=== PATIENT | male | born 1960 ===

== ENCOUNTER 2017-06-22 10:54 | Emergency (ER) | payer OTHER ==
[2017-06-22 11:06] VITALS: BMI 28.8
[2017-06-22 11:10] VITALS: BP 169/76; PULSE 80; RESP 18; TEMP 97.9; O2SAT 100
--- NOTE | 2017-06-22 11:44 | RAD ---
PROCEDURE: Right Foot Radiographs. HISTORY: pain to arch and heel of foot, no injury COMPARISON: None. FINDINGS: BONES: No acute fracture. JOINTS: Normal. SOFT TISSUES: Normal. OTHER FINDINGS: Achilles enthesophyte. Inferior plantar calcaneal spur. IMPRESSION: No demonstrated fracture or dislocation.
--- NOTE | 2017-06-22 11:58 | C.PDOC ---
History Of Present Illness 57 year old male presents to ED for evaluation of right foot pain along the arch of the foot for the last 2 days. Patient states he felt a "click" when stepping on a ladder at work 2 days ago. Patient admits to having similar symptoms in the past. Denies fall, injury, change in sensation, skin changes, swelling, or fever. Time Seen by Provider: 06/22/17 11:22 Chief Complaint (Nursing): Lower Extremity Problem/Injury History Per: Patient History/Exam Limitations: no limitations Onset/Duration Of Symptoms: Days (2) Current Symptoms Are (Timing): Still Present Recent travel outside of the [place]: No Additional History Per: Patient Past Medical History Reviewed: Historical Data, Nursing Documentation, Vital Signs Vital Signs: Last Vital Signs Temp 97.9 F 06/22/17 11:06 Pulse 80 06/22/17 11:06 Resp 18 06/22/17 11:06 BP 169/76 H 06/22/17 11:06 Pulse Ox 100 06/22/17 12:07 - Medical History PMH: Diabetes, HTN Denies: Chronic Kidney Disease Surgical History: CABG (triple jun 03, 2016), Coronary Stent (adriano 1999,2001), Tonsillectomy - [facility] Procedures OTHER SKIN & SUBQ I D (11/12/12) Family History: States: Unknown Family Hx - Social History Hx Tobacco Use: No Hx Alcohol Use: No Hx Substance Use: No - Immunization History Hx Tetanus Toxoid Vaccination: No Hx Influenza Vaccination: No Hx Pneumococcal Vaccination: No Review Of Systems Except As Marked, All Systems Reviewed And Found Negative. Constitutional: Negative for: Fever, Chills Musculoskeletal: Positive for: Foot Pain (right). Negative for: Leg Pain Skin: Negative for: Rash, Bruising Neurological: Negative for: Weakness, Numbness Physical Exam - Physical Exam Appears: Non-toxic, No Acute Distress Skin: Normal Color, Warm, Dry, No Ecchymosis (no ecchymosis to right foot) Head: Atraumatic, Normacephalic Extremity: Normal ROM (FROM of right foot), Tenderness (tenderness to medial and plantar surface of the right foot), No Pedal Edema, No Calf Tenderness, Capillary Refill (less than 2 seconds), No Deformity, No Swelling Extremity: Bilateral: Normal Color And Temperature, Normal ROM Pulses: Left Dorsalis Pedis: Normal, Right Dorsalis Pedis: Normal Neurological/Psych: Oriented x3, Normal Speech, Normal Motor, Normal Sensation ED Course And Treatment O2 Sat by Pulse Oximetry: 100 (RA) Pulse Ox Interpretation: Normal - Other Rad Right foot x-ray X-Ray: Viewed By Me, Read By Radiologist Interpretation: PROCEDURE: Right Foot Radiographs. HISTORY: pain to arch and heel of foot, no injury. COMPARISON: None. FINDINGS: BONES: No acute fracture. JOINTS: Normal. SOFT TISSUES: Normal. OTHER FINDINGS: Achilles enthesophyte. Inferior plantar calcaneal spur. IMPRESSION: No demonstrated fracture or dislocation. Medical Decision Making Medical Decision Making: Impression: right foot pain Plan: Right foot x-ray Reassess, dispo: Explained results of xray to patient and provide copy of report to patient. He is ambulatory without discomfort. recommend foot exercises and analgesics. can follow up with podiatry Disposition Counseled Patient/Family Regarding: Diagnosis, Need For Followup, Rx Given - Disposition Referrals: Podiatry Clinic [Outside] Disposition: HOME/ ROUTINE Disposition Time: 12:10 Condition: GOOD Additional Instructions: Your xray shows calcaneal spurring. Please apply ice to area 15 minutes three times a day. Take Motrin as needed for pain every 6 hours, with food to not upset stomach. Follow up with podiatry if pain persists over one week. Prescriptions: Ibuprofen [Motrin] 600 mg PO Q8 #30 tab Instructions: Heel Pain (Caused by Plantar Fasciitis), Plantar Fasciitis Exercises Forms: [facility] (Namibian) - POA Present On Arrival: None - Clinical Impression Clinical Impression: Plantar fasciitis - PA / NURSING EXECUTIVE / Resident Statement MD/DO has reviewed & agrees with the documentation as recorded. - Scribe Statement The provider has reviewed the documentation as recorded by the Damienibe Stacey Pacheco All medical record entries made by the Major were at my direction and personally dictated by me. I have reviewed the chart and agree that the record accurately reflects my personal performance of the history, physical exam, medical decision making, and the department course for this patient. I have also personally directed, reviewed, and agree with the discharge instructions and disposition.
== END 2017-06-22 12:15 | disposition home or self-care (01) ==
LOC: C.ER 10:54
DX: M72.2 Plantar fascial fibromatosis (principal)

== ENCOUNTER 2017-09-10 06:55 | Emergency (ER) | payer OTHER ==
[2017-09-10 06:55] VITALS: BMI 28.8
--- NOTE | 2017-09-10 07:42 | C.PDOC ---
History Of Present Illness 57 y/o male, w/ PMhx of HTN, diabetes, CAD s/p CABG, presents to the ER complaining of lightheadedness which began in the morning today. Patient is also complaining of left jaw and left ear pain which also began in the morning today. Patient admits to not taking his nighttime BP medication yesterday because he fell asleep. Denies having CP, SOB, palpitations, visual changes, lower extremity weakness, and neurosensory changes. Time Seen by Provider: 09/10/17 07:07 Chief Complaint (Nursing): Dizziness/Lightheaded History Per: Patient History/Exam Limitations: no limitations Onset/Duration Of Symptoms: Hrs Current Symptoms Are (Timing): Still Present Severity: Moderate Past Medical History Reviewed: Historical Data, Nursing Documentation, Vital Signs Vital Signs: Last Vital Signs Temp 98 F 09/10/17 09:31 Pulse 77 09/10/17 10:52 Resp 18 09/10/17 10:52 BP 146/73 09/10/17 10:52 Pulse Ox 99 09/10/17 10:52 - Medical History PMH: Diabetes, HTN Denies: Chronic Kidney Disease Surgical History: CABG (triple jun 03, 2016), Coronary Stent (adriano 1999,2001), Tonsillectomy - [facility] Procedures OTHER SKIN & SUBQ I D (11/12/12) Family History: States: No Known Family Hx - Social History Hx Tobacco Use: No Hx Alcohol Use: No Hx Substance Use: No - Immunization History Hx Tetanus Toxoid Vaccination: No Hx Influenza Vaccination: No Hx Pneumococcal Vaccination: No Review Of Systems Except As Marked, All Systems Reviewed And Found Negative. Constitutional: Negative for: Fever, Chills Eyes: Negative for: Vision Change ENT: Positive for: Ear Pain (left ear pain) Cardiovascular: Negative for: Chest Pain, Palpitations Respiratory: Negative for: Shortness of Breath Neurological: Positive for: Dizziness. Negative for: Weakness, Numbness Physical Exam - Physical Exam Appears: Non-toxic, No Acute Distress, Other (comfortable) Skin: Normal Color, Warm, Dry Head: Atraumatic, Normacephalic Eye(s): bilateral: Normal Inspection, PERRL, EOMI Ear(s): Bilateral: Normal Nose: Normal Oral Mucosa: Moist Neck: Supple Chest: Symmetrical Cardiovascular: Rhythm Regular, Murmur (4/6 systolic murmur) Respiratory: Normal Breath Sounds, No Rales, No Rhonchi, No Wheezing Gastrointestinal/Abdominal: Normal Exam, Soft, No Tenderness Neurological/Psych: Oriented x3, Normal Speech, Normal Cranial Nerves, Normal Motor, Normal Sensation Gait: Steady ED Course And Treatment - Laboratory Results Result Diagrams: 09/10/17 07:46 09/10/17 07:46 O2 Sat by Pulse Oximetry: 98 (RA) Pulse Ox Interpretation: Normal - CT Scan/US CT HEAD Other Rad Studies (CT/US): Read By Radiologist, Radiology Report Reviewed CT/US Interpretation: Accession No. : [id number]. Patient Name / ID : CATHRYN JARA / [id number]. Exam Date : 09/10/2017 08:51:11 ( Approved ). Study Comment : Sex / Age : M / 57Y. Creator : Fadumo Hawkins. Dictator : Magaly Casper MD. Neurophysiology Tech : Process Cheese Cooker : Magaly Casper MD. Approver2 : Report Date : 09/10/2017 08:56:01. My Comment : . PROCEDURE: CT HEAD WITHOUT CONTRAST. HISTORY: dizzy, uncontroled hypertension. COMPARISON: None available. TECHNIQUE: Axial computed tomography images were obtained through the head/brain without intravenous contrast. Radiation dose: Total exam DLP = 904.85 mGy-cm. This CT exam was performed using one or more of the following dose reduction techniques: Automated exposure control, adjustment of the mA and/or kV according to patient size, and/or use of iterative reconstruction technique. FINDINGS: HEMORRHAGE: No intracranial hemorrhage. BRAIN: Michelle-white matter differentiation is preserved. There is no mass, mass effect or abnormal extra-axial fluid collection. There is no territorial infarction. VENTRICLES: The ventricles are normal in shape and configuration. There is asymmetry in the size of the lateral ventricles, left larger than right, likely an anatomic variant. CALVARIUM: The skull base and calvarium are normal. PARANASAL SINUSES: Predominantly clear. MASTOID AIR CELLS: Predominantly clear. OTHER FINDINGS: None. IMPRESSION: No acute intracranial abnormality. Progress Note: Labs, UA, EKG, CT- Head ordered. Patient treated with Norvasc PO. Disposition Counseled Patient/Family Regarding: Studies Performed, Diagnosis, Need For Followup - Disposition Referrals: Nyasia Baldwin MD [Staff Provider] - Disposition: HOME/ ROUTINE Disposition Time: 11:15 Condition: STABLE Additional Instructions: FOLLOW UP WITH DR BALDWIN IN 1-2 DAYS RETURN TO ER IF YOU HAVE ANY CONCERNING SYMPTOMS Instructions: High Blood Pressure (DC) Forms: [facility] (Sinhala), General Discharge Instructions Print Language: ITALIAN - POA Present On Arrival: None - Clinical Impression Clinical Impression: Dizziness, Hypertension - Scribe Statement The provider has reviewed the documentation as recorded by the Damienibe Artie De Santiago Provider Attestation: All medical record entries made by the Damienibe were at my direction and personally dictated by me. I have reviewed the chart and agree that the record accurately reflects my personal performance of the history, physical exam, medical decision making, and the department course for this patient. I have also personally directed, reviewed, and agree with the discharge instructions and disposition.
[2017-09-10 07:52] LABS: BASO % 0.7 % (0.0-2.0); EOS # 0.2 K/uL (0.0-0.7); EOS % 4.2 % (0.0-4.0); HEMOGLOBIN 12.7 g/dL (12.0-18.0); LYMPH # 1.3 K/uL (1.0-4.3); LYMPH % 23.3 % (20.0-40.0); MEAN CELL VOLUME 82.3 fL (80.0-94.0); MEAN CORPUSCULAR HEMOGLOBIN 29.2 pg (27.0-31.0); MEAN CORPUSCULAR HGB CONC 35.5 g/dL (33.0-37.0); MEAN PLATELET VOLUME 7.9 fL (7.2-11.7); MONO # 0.5 K/uL (0.0-0.8); MONO % 8.5 % (0.0-10.0); NEUT # 3.5 K/uL (1.8-7.0); NEUT % 63.3 % (50.0-75.0); NRBC % 0.1 % (0.0-2.0); RBC 4.33 Mil/uL (4.40-5.90); RED CELL DISTRIBUTION WIDTH 13.9 % (11.5-14.5); WHITE BLOOD COUNT 5.4 K/uL (4.8-10.8)
[2017-09-10 08:27] LABS: ALB/GLOB RATIO 1.2 (1.0-2.1); ALBUMIN 3.6 g/dL (3.5-5.0); ALT/SGPT 23 U/L (21-72); AST/SGOT 32 U/L (17-59); BLOOD UREA NITROGEN 22 mg/dL (9-20); CALCIUM 9.3 mg/dl (8.6-10.4); GFR AFRICAN-AMERICAN > 60; GFR NON-AFRICAN AMERICAN > 60
[2017-09-10] MEDS ORDERED: (Novolin R) Insulin Human Regular 100 units/ml vial IV ONE (09:00)
--- NOTE | 2017-09-10 09:11 | CT ---
PROCEDURE: CT HEAD WITHOUT CONTRAST. HISTORY: dizzy, uncontroled hypertension COMPARISON: None available. TECHNIQUE: Axial computed tomography images were obtained through the head/brain without intravenous contrast. Radiation dose: Total exam DLP = 904.85 mGy-cm. This CT exam was performed using one or more of the following dose reduction techniques: Automated exposure control, adjustment of the mA and/or kV according to patient size, and/or use of iterative reconstruction technique. FINDINGS: HEMORRHAGE: No intracranial hemorrhage. BRAIN: Michelle-white matter differentiation is preserved. There is no mass, mass effect or abnormal extra-axial fluid collection. There is no territorial infarction. VENTRICLES: The ventricles are normal in shape and configuration. There is asymmetry in the size of the lateral ventricles, left larger than right, likely an anatomic variant. CALVARIUM: The skull base and calvarium are normal PARANASAL SINUSES: Predominantly clear. MASTOID AIR CELLS: Predominantly clear. OTHER FINDINGS: None. IMPRESSION: No acute intracranial abnormality.
[2017-09-10 09:32] VITALS: RESP 18; TEMP 98
[2017-09-10 10:05] LABS: URINE BILIRUBIN NEGATIVE (NEGATIVE); URINE BLOOD 1+ (NEGATIVE); URINE CLARITY Clear (Clear); URINE COLOR Straw (YELLOW); URINE GLUCOSE (UA) 3+ mg/dL (Normal); URINE LEUKOCYTE ESTERASE NEG Leu/uL (Negative); URINE PROTEIN NEGATIVE (NEGATIVE); URINE UROBILINOGEN NORMAL mg/dL (0.2-1.0)
[2017-09-10] MEDS ORDERED: (Novolin R) Insulin Human Regular 100 units/ml vial ONE (10:23)
[2017-09-10 10:52] VITALS: BP 146/73; PULSE 77
[2017-09-10 11:17] VITALS: O2SAT 98
--- NOTE | 2017-09-11 13:58 | CARD ---
APPROVED REPORT EKG Measurement Heart [id number] <Conclusion> Normal sinus rhythm Possible Left atrial enlargement Nonspecific T wave abnormality Abnormal ECG
== END 2017-09-10 11:32 | disposition home or self-care (01) ==
LOC: C.ER 06:55
DX: I10 Essential (primary) hypertension (principal); R42 Dizziness and giddiness; E11.9 Type 2 diabetes mellitus without complications; I25.10 Atherosclerotic heart disease of native coronary artery without angina pectoris; Z95.1 Presence of aortocoronary bypass graft